=== PATIENT | female | born 1945 | race Caucasian/White ===

== ENCOUNTER 2017-04-14 08:52 | Inpatient (IN) | payer OTHER ==
[2017-04-01 13:22] LABS: BASO % 0.3 %; BASO ABS # 0.03 K/uL (0-0.2); COMPLETE YES; EOS % 2.1 %; HEMATOCRIT 36.8 % (37-47); IG% 0.3 %; LYMPH % 20.6 %; LYMPH ABS # 1.85 K/uL (1.2-3.4); MEAN CELL VOLUME 91.5 fL (80-100); MEAN CORPUSCULAR HEMOGLOBIN 32.6 pg (25-34); MEAN CORPUSCULAR HGB CONC 35.6 g/dl (32-36); MONO % 5.7 %; PLATELET COUNT 180 K/uL (130-400); RED BLOOD COUNT 4.02 M/uL (4.2-5.4); WHITE BLOOD COUNT 8.98 K/uL (4.8-10.8)
[2017-04-01 13:31] LABS: INR 1.1 (0.9-1.1); PARTIAL THROMBOPLASTIN RATIO 1.2; URINE APPEARANCE CLEAR (CLEAR); URINE BILIRUBIN NEG (NEG); URINE COLOR YELLOW; URINE NITRITE NEG (NEG); URINE PH 5.5 (4.5-7.5); UROBILINOGEN NEG (NEG)
[2017-04-01 13:33] LABS: MANUAL MICROSCOPIC REQUIRED? NO; REVIEW REQ? NO
[2017-04-01 13:54] LABS: ESTIMATED AVERAGE GLUCOSE 97 mg/dl; HA1C FLAG Normal (Normal)
--- NOTE | 2017-04-01 13:54 | PAT Medication Instructions ---
Service Date Apr 01, 2017. Current Home Medication List Alprazolam (Alprazolam), 0.5 MG PO QAM Apixaban (Eliquis), 5 MG PO BID Calcium Carbonate (Tums), 1 TAB PO BID Diltiazem Hcl Ext Rel (Tiazac), 120 MG PO HS Donepezil HCl (Aricept), 10 MG PO QAM Indapamide (Lozol), 1.25 MG PO QAM Levothyroxine Sodium (Levothyroxine Sodium), 1 TAB PO QAM Magnesium Oxide (Mag-Ox), 400 MG PO QAM Memantine (Namenda), 10 MG PO BID Quetiapine Fumarate (Seroquel), 25 MG PO HS Sertraline (Zoloft), 100 MG PO QAM Simvastatin (Zocor), 20 MG PO HS Valsartan (Diovan), 160 MG PO BID [Tylenol], 1 TAB PO PRN Medication Instructions For Your Scheduled Surgery - Hold the following medications per your cuffing machine operator's instructions: Apixaban (Eliquis), 5 MG PO BID - Hold the following medications 24 hours prior to surgery: Valsartan (Diovan), 160 MG PO BID - Hold the following medications the morning of surgery: Magnesium Oxide (Mag-Ox), 400 MG PO QAM Calcium Carbonate (Tums), 1 TAB PO BID Indapamide (Lozol), 1.25 MG PO QAM - Take the following medications the morning of surgery with a sip of water: [Tylenol], 1 TAB PO PRN (if needed) Donepezil HCl (Aricept), 10 MG PO QAM Levothyroxine Sodium (Levothyroxine Sodium), 1 TAB PO QAM Sertraline (Zoloft), 100 MG PO QAM Alprazolam (Alprazolam), 0.5 MG PO QAM Memantine (Namenda), 10 MG PO BID - Take the following medications as scheduled the night before surgery: [Tylenol], 1 TAB PO PRN (if needed) Diltiazem Hcl Ext Rel (Tiazac), 120 MG PO HS Simvastatin (Zocor), 20 MG PO HS Quetiapine Fumarate (Seroquel), 25 MG PO HS Memantine (Namenda), 10 MG PO BID If you have any questions please call us at [phone] or [phone] or [phone]
--- NOTE | 2017-04-01 14:50 | DIAGNOSTIC IMAGING REPORT ---
CHEST PREADMISSION(PA/LAT) CLINICAL HISTORY: Preoperative chest COMPARISON STUDY: No previous studies for comparison. FINDINGS: The heart is normal in size. There is no focal pulmonary consolidation. There is no failure. There are no pleural effusions. There is a left subclavian dual-chamber central venous pacemaker.[ IMPRESSION: No active disease in the chest. Electronically signed by: Loy Hyatt M.D. 04/01/2017 2:49 PM Dictated Date/Time: 04/01/2017 2:48 PM
[2017-04-01 14:56] LABS: BUN/CREATININE RATIO 13.4 (10-20); CALCIUM 9.8 mg/dl (8.5-10.1); CREATININE 0.75 mg/dl (0.60-1.20); POTASSIUM 3.6 mmol/L (3.5-5.1)
--- NOTE | 2017-04-01 17:26 | HISTORY & PHYSICAL EXAMINATION ---
DATE OF ADMISSION: 04/14/2017 CHIEF COMPLAINT: Right hip pain. HISTORY OF PRESENT ILLNESS: Ms. Arnold is a 72-year-old female with multiple year history of right hip pain. The patient rates her pain an 8/10. She has pain with her daily activities. She has limited standing and walking tolerance. Pain is worse with weightbearing. The patient had an intraarticular injection 2 weeks ago, which gave her no relief. She ambulates with a walker and takes Tylenol at home. She has failed conservative treatment and is scheduled for a right hip replacement. PAST MEDICAL HISTORY: AFib, hypertension, hypercholesterolemia. She denies heart disease, diabetes, or DVT. PAST SURGICAL HISTORY: Left total hip arthroplasty and hysterectomy x2. SOCIAL HISTORY: She denies alcohol or tobacco use. She lives in a 2-story home. She is and retired. FAMILY HISTORY: Negative for DVT. MEDICATIONS: Quetiapine 25 mg twice daily, diltiazem ER 120 mg daily, Donepezil 10 mg daily, Klor-Con 10 mEq 2 tablets b.i.d., levothyroxine 150 mcg daily, mag oxide 400 mg daily, sertraline 100 mg daily, simvastatin 20 mg daily, valsartan 160 mg daily, memantine 10 mg b.i.d., Eliquis 5 mg b.i.d., indapamide 1.25 mg daily, Alprazolam 1 tablet 3 times daily. ALLERGIES: None. REVIEW OF SYSTEMS: See HPI. Ten other systems reviewed, all negative. PHYSICAL EXAMINATION: VITAL SIGNS: Height 5 feet 1 inch, weight 156 pounds, BMI 29. GENERAL: This is a well-developed, well-nourished female, who is alert and oriented x3. Mood and affect are appropriate. HEENT: Normocephalic, atraumatic. Mucous membranes are moist and intact. NECK: Supple without lymphadenopathy. HEART: Regular rate and rhythm without murmurs, rubs, or gallops. LUNGS: Clear to auscultation without wheezes or rhonchi. ABDOMEN: Soft and nontender. Bowel sounds are equal and active. EXTREMITIES: No ecchymosis, redness, or warmth. Thigh and calf are soft and nontender. Log roll of the hip reproduces pain in the groin. Range of motion is decreased. She is neurovascularly intact with +5/5 strength. X-RAY EXAMINATION: AP and lateral views show joint space narrowing and osteophyte formation. IMPRESSION: Degenerative joint disease, right hip. PLAN: The patient will be admitted for a right total hip arthroplasty. The patient is to going to stop her Eliquis 1 week before surgery. She will resume this postoperatively. The patient's family is requesting a short inpatient rehab stay postoperatively, perhaps [facility]? The patient's PCP is Dr. Gonzalez in [place].
[2017-04-14] VITALS (7 sets, daily range): BP systolic 104–147; BP diastolic 66–77; PULSE 64–80; TEMP 36.2–36.5; O2SAT 95–98; Ht 152.4 cm; Wt 71.5 kg
[~2017-04-14] VITALS: Ht 152.4 cm; Wt 71.5 kg
--- NOTE | 2017-04-14 07:21 | History & Physical Bridge Note ---
H&P Re-Evaluation Bridge Note: I have examined the patient, reviewed the History & Physical and in the interval since the performance of the History & Physical I have noted the following changes of clinical significance: No changes noted
[~2017-04-14 08:52] MED LIST: ACET325T96 PO; ACETAMINOPHEN 500 MG TAB PO SCH; APIX1TAB3 PO; ATROPINE SULFATE 0.1 MG/ML 5ML SYR IV PRN; BUPIVACAINE 0.5 % 5 MG/1 ML PF 10ML VIAL ONE; CALC500C3 PO; CEFAZOLIN 2000MG IV PUSH 10 ML IV SCH; CeleBREX 200 MG CAP PO SCH; DEXAMETHASONE 4 MG TAB PO SCH; DILT120C68 PO; DONE5TAB9 PO; DVN/160 PO; EpHEDrine SULFATE INJ 50 MG/ML AMP IV PRN; FAMOTIDINE 20 MG TAB PO SCH; FENTANYL CITRATE INJ 50 MCG/1 ML 2 ML VIAL IV PRN; GABAPENTIN 300 MG CAP PO SCH; HYDROmorphone INJ 1 MG/ML SYR IV PRN; INDA1TAB3 PO; LABETALOL HCL IV 5 MG/ML 20ML IV PRN; LACTATED RINGER'S 1000ML 1,000 ML IV SCH; LACTATED RINGER'S 1000ML 500 ML IV SCH; LACTATED RINGER'S 1000ML IV SCH; LEVO150T9 PO; MAGN400T6 PO; METOCLOPRAMIDE HCL 10 MG TAB PO SCH; NMN10 PO; ONDANSETRON INJ 2 MG/ML 2 ML VIAL IV PRN; PHENYLEPHRINE 100MCG/ML 5ML SYR IV PRN; QUET1TAB30 PO; ROPIVACAINE 5MG/ML 30 ML 150 MG, BUPIVACAINE 0.5% MPF INJ 30 ML, EpINEphrine HCL INJ 0.... INFIL SCH; SERT-234 PO; SIMV20TA2 PO; XNX5 PO
[2017-04-14] MEDS ORDERED: LIDOCAINE HCL 2% 2 ML VIAL (20MG/ML) ONE (09:48)
[2017-04-14] MEDS ORDERED: FENTANYL CITRATE INJ 50 MCG/1 ML 2 ML VIAL ONE (09:48)
[2017-04-14] MEDS ORDERED: MIDAZOLAM HCL 1 MG/ML 2ML VIAL ONE (09:48)
[2017-04-14] MEDS ORDERED: ONDANSETRON INJ 2 MG/ML 2 ML VIAL ONE ×2 (09:48→11:21)
[2017-04-14] MEDS ORDERED: PROPOFOL IV EMULSION 10 MG/ML 20 ML VIAL IV ONE (09:48)
[2017-04-14] MEDS ORDERED: POVIDONE-IODINE OP SOLN 30 ML BTL ONE (10:34)
[2017-04-14] MEDS ORDERED: ORTHO JOINT ANESTHETIC ONE (10:34)
[2017-04-14] MEDS ORDERED: BACITRACIN 50000 UNIT VIAL ONE (10:34)
[2017-04-14] MEDS ORDERED: LARYING-O-JET KIT (LTA) ONE ×2 (11:17)
[2017-04-14] MEDS ORDERED: NEOSTIGMINE METHYLSULFATE 5 MG/5 ML SYR ONE (11:18)
[2017-04-14] MEDS ORDERED: ROCURONIUM BROMIDE 10 MG/ML 5 ML VIAL IV ONE (11:18)
[2017-04-14] MEDS ORDERED: GLYCOPYRROLATE INJ 0.2 MG/ML VIAL ONE (11:18)
[2017-04-14] MEDS ORDERED: DEXAMETHASONE SOD INJ 4 MG/ML VIAL ONE (11:21)
[2017-04-14] MEDS ORDERED: HYDROmorphone INJ 2 MG/ML SYR/VIAL ONE (11:37)
--- NOTE | 2017-04-14 12:07 | [facility] Post Operative Brief Note ---
Immediate Operative Summary Operative Date Apr 14, 2017. Pre-Operative Diagnosis Right hip degenerative joint disease Post-Operative Diagnosis Right hip degenerative joint disease Procedure(s) Performed Right hip total arthroplasty Surgeon Dr. Clyde Garcia Machine Welder Surgeon(s) August Duffy PAC Estimated Blood Loss 100ml Findings oa Specimens A: Right femoral head Complication(s) None Disposition Recovery Room / PACU
--- NOTE | 2017-04-14 12:22 | OPERATIVE REPORT ---
DATE OF OPERATION: 04/14/2017 PREOPERATIVE DIAGNOSIS: Osteoarthritis right hip. POSTOPERATIVE DIAGNOSIS: Osteoarthritis right hip. PROCEDURE: Right connective total hip arthroplasty. SURGEON: Dr. Garcia. CONDUCTOR FREIGHT: August Duffy PA-C. ANESTHESIA: General. COMPLICATIONS: None. OPERATION AND FINDINGS: PROCEDURE: Following induction of adequate general anesthesia, the patient was placed in left lateral decubitus position and right Lena-Langenbeck incision was made. Subcutaneous tissue was sharply dissected. Electrocautery used for hemostasis. The fascia was incised throughout the length of the wound and a garvey scissor placed beneath the short external rotators. The pyriformis was tagged with #1 Vicryl. The short external rotators were divided from the posterior aspect of the femur using electrocautery. These were swept posteriorly. A T-capsulotomy incision was made and the hip was dislocated using a combination of flexion, adduction, and internal rotation. Exposure of the femoral neck with old-style Hohmann and a blunt Hohmann was carried out and a femoral rasp was utilized as a guide for making the appropriate level femoral neck cut. This bone fragment was removed and reserved on the back table. Next, attention was turned to the acetabulum where bone hook was used to retract the femur while the offset retractors were placed anterior and posteriorly. A double-angled Hohmann was placed in superior and anterior position exposing the acetabulum nicely. Acetabular labrum as well as posterior capsule elements were removed using a long knife and a long pickup. Fovea centralis was cleared of all soft tissue. Sequential reamings were carried up to a size 50 and decision was made to proceed with impaction of a size 50 trabecular metal cup. This was impacted and held using a single 35 mm bone screw. The acetabular liner was placed with 15 of elevated posterior wall in the superior and posterior position. Next, attention was turned to the femoral portion of the case where a Bovie and pickup was used to further clear short external rotators from their insertion on the femur. Box osteotome was used to gain access to the femoral canal and the T-handled rasp and a rattail rasp were used to further open and lateral the canal. Sequentially raspings were carried up to a size 3 which gave good fit and fill of the proximal femur. A trial reduction was carried out and a 132 degree femoral neck component was chosen as the size to be used. A -2.5 ceramic femoral head was impacted into position, +0 head was utilized. The trial reduction was stable in all degrees of rotation with no [id number] impingement. The hip was dislocated. The trial components were removed and the final femoral stem, neck, and femoral head combination were assembled on the back table and impacted into position. Hip was relocated. Range of motion checked once again successful and the wound was irrigated. The pyriformis repaired to the greater trochanter using #1 Vicryl [id number] suture. A Hemovac drain was placed and the fascia was closed using #1 Vicryl, subcutaneous tissue was closed using 0 Dexon, and skin was closed with kyung. Sterile dressing of Adaptic, 4 x 4's, ABDs, and foam tape was applied. The patient tolerated the procedure well. Recovery room stable. Due to the complex nature of the procedure, the entire surgery was performed with the operational assistance of August Duffy PA-C. The assistant shift supervisor, under direct supervision, was involved in the actual performance of all aspects of the surgical procedure including hemostasis, tissue retraction and incision, instrument management, patient positioning, and wound closure. I attest to the content of the Intraoperative Record and any orders documented therein. Any exception s are noted below.
[2017-04-14] MEDS ORDERED: ALUMINUM/MAGNESIUM/SIMETH (MAALOX MAX) 30 ML UDC PO PRN (12:45)
[2017-04-14] MEDS ORDERED: OXYCODONE HCL IR 5 MG TAB (IMMEDIATE RELEASE) PO PRN (12:45)
[2017-04-14] MEDS ORDERED: ONDANSETRON INJ 2 MG/ML 2 ML VIAL IV PRN (12:45)
[2017-04-14] MEDS ORDERED: MoRPHine SULFATE 2 MG/ML CARP IV PRN (12:45)
[2017-04-14] MEDS ORDERED: MAGNESIUM HYDROXIDE SUSP 30 ML UDC PO PRN (12:45)
[2017-04-14] MEDS ORDERED: ZOLPIDEM TARTRATE 5 MG TAB PO PRN (12:45)
[2017-04-14] MEDS ORDERED: METOCLOPRAMIDE HCL INJ 5 MG/ML 2 ML VIAL IV PRN (12:45)
[2017-04-14] MEDS ORDERED: LABETALOL HCL IV 5 MG/ML 20ML IV ONE (12:51)
--- NOTE | 2017-04-14 13:24 | DIAGNOSTIC IMAGING REPORT ---
R PELVIS/UNILATERAL HIP 1 VIEW HISTORY: 72 years-old Female IN PACU - A/P PELVIS and LATERAL HIP INCLUDING ALL OF IMPLANT status post right hip total arthroplasty. Degenerative joint disease. COMPARISON: None available TECHNIQUE: AP view of the pelvis with frog-leg view of the right hip FINDINGS: Bones are mildly demineralized. No acute pelvic ring fracture identified. Bilateral hip arthroplasties are noted with satisfactory alignment. Surgical drain seen overlying the right hip. Expected postsurgical swelling and deep tissue air noted about the right hip. No retained foreign body identified. Vascular calcifications are noted. IMPRESSION: Status post right hip total joint arthroplasty without evidence of complication. The above report was generated using voice recognition software. It may contain grammatical, syntax or spelling errors. Electronically signed by: Cory Marshall M.D. 04/14/2017 1:22 PM Dictated Date/Time: 04/14/2017 1:20 PM
--- NOTE | 2017-04-14 14:57 | Anesthesiology Progress Note ---
Anesthesia Post Op Note Date & Time Apr 14, 2017 at 14:57 Vital Signs Pain Intensity: 0 Vital Signs Past 12 Hours Date Time Temp Pulse Resp B/P (MAP) Pulse Ox O2 Delivery O2 Flow Rate FiO2 04/14/17 13:42 76 26 95 04/14/17 13:42 63 26 04/14/17 13:41 116/53 04/14/17 13:37 64 15 04/14/17 13:37 64 15 95 04/14/17 13:36 117/59 04/14/17 13:32 67 13 04/14/17 13:32 67 13 94 04/14/17 13:31 119/55 04/14/17 13:27 67 17 04/14/17 13:27 67 17 97 04/14/17 13:26 130/67 04/14/17 13:22 65 14 04/14/17 13:22 65 14 97 04/14/17 13:21 107/57 04/14/17 13:21 36.6 67 19 130/67 97 Oxymask 3 04/14/17 13:17 68 19 04/14/17 13:17 66 19 97 04/14/17 13:16 116/56 04/14/17 13:12 68 16 97 04/14/17 13:12 68 16 04/14/17 13:11 120/59 04/14/17 13:07 71 8 04/14/17 13:07 66 8 97 04/14/17 13:06 68 13 04/14/17 13:06 68 13 120/60 97 04/14/17 13:01 71 13 04/14/17 13:01 71 13 134/62 98 04/14/17 12:56 69 12 116/60 96 04/14/17 12:56 69 12 04/14/17 12:51 67 11 115/61 95 04/14/17 12:51 68 11 04/14/17 12:50 68 14 115/61 96 Oxymask 10 04/14/17 12:46 73 15 119/70 96 04/14/17 12:46 73 15 04/14/17 12:43 36.6 108 16 201/94 95 Oxymask 10 04/14/17 12:43 201/94 04/14/17 12:41 107 93 04/14/17 12:41 107 04/14/17 09:41 36.5 80 20 147/77 97 Room Air Notes Mental Status: alert / awake / arousable, participated in evaluation Pt Amnestic to Procedure: Yes Nausea / Vomiting: adequately controlled Pain: adequately controlled Airway Patency, RR, SpO2: stable & adequate BP & HR: stable & adequate Hydration State: stable & adequate Anesthetic Complications: no major complications apparent
[2017-04-14] MEDS ORDERED: MoRPHine SULFATE 4 MG/ML 1 ML CARP\\VIAL IV PRN (16:15)
--- NOTE | 2017-04-14 16:54 | Medical Consult ---
History General Date of Service: Apr 14, 2017. Stated Complaint: Right Hip Osteoarthritis HPI The patient is a 72 year old female who presents to [facility] with complaints of Right Hip Osteoarthritis. The patient's primary care provider is Memo Gonzalez M.D.. Patient is seen in her room Dr. Garcia was dressing her wound was bleeding a bit. She is still slightly sedate from general anesthesia her is at the bedside as well as the rest of her family she has no focal complaints or problems other than feeling weak and groggy she does have a history of atrial fibrillation usually on chronic anticoagulation with Eliquis her A. fib has been controlled with diltiazem Review of Systems Patient's sedation prevents an accurate review of systems currently she can tell me she does not feel short of breath or chest pain she does not feel palpitations she feels no nausea vomiting she has some pain in her operative site Social History Hx Tobacco Use In Past Year?: No Smoking Status: Never Smoker Allergies Coded Allergies: No Known Allergies (Unverified , 04/14/17) Current Medications Reported Home Medications Medications Dose Route/Sig Max Daily Dose Days Date Category Tylenol (Acetaminophen) 325 Mg Tab 325 Mg PO PRN 04/01/17 Reported Tums (Calcium Carbonate) 500 Mg Chew 1 Tab PO BID 04/01/17 Reported Alprazolam 0.5 Mg Tab 0.5 Mg PO QAM 04/01/17 Reported Lozol (Indapamide) 1.25 Mg Tab 1.25 Mg PO QAM 04/01/17 Reported Eliquis (Apixaban) 5 Mg Tab 5 Mg PO BID 04/01/17 Reported Namenda (Memantine) 10 Mg Tab 10 Mg PO BID 04/01/17 Reported Diovan (Valsartan) 160 Mg Tab 160 Mg PO BID 04/01/17 Reported Zocor (Simvastatin) 20 Mg Tab 20 Mg PO HS 04/01/17 Reported Zoloft (Sertraline HCl) 100 Mg Tab 100 Mg PO QAM 04/01/17 Reported Mag-Ox (Magnesium Oxide) 400 Mg Tab 400 Mg PO QAM 04/01/17 Reported Levothyroxine Sodium 150 Mcg Tab 1 Tab PO QAM 90 04/01/17 Reported Aricept (Donepezil HCl) 5 Mg Tab 10 Mg PO QAM 90 04/01/17 Reported Tiazac (Diltiazem HCl) 120 Mg Capcr 120 Mg PO HS 04/01/17 Reported Seroquel (Quetiapine Fumarate) 25 Mg Tab 25 Mg PO HS 04/01/17 Reported Physical Physical Exam Vital Signs: Date Time Temp Pulse Resp B/P (MAP) Pulse Ox O2 Delivery O2 Flow Rate FiO2 04/14/17 16:33 36.2 64 10 111/70 (84) 96 Nasal Cannula 2.0 04/14/17 15:59 36.3 65 12 116/67 (83) 96 Nasal Cannula 2.0 04/14/17 15:30 Nasal Cannula 04/14/17 15:30 96 Nasal Cannula 2.0 04/14/17 15:24 70 10 98 04/14/17 15:24 70 10 04/14/17 15:21 135/52 04/14/17 15:19 70 15 96 04/14/17 15:19 70 15 04/14/17 15:16 132/72 04/14/17 15:14 73 27 98 04/14/17 15:14 74 27 04/14/17 15:11 149/59 04/14/17 15:09 75 13 04/14/17 15:09 75 13 97 04/14/17 15:06 137/53 04/14/17 15:04 71 13 95 04/14/17 15:04 71 13 04/14/17 15:03 78 24 04/14/17 15:03 79 24 97 04/14/17 15:01 140/68 04/14/17 14:58 76 26 04/14/17 14:58 76 26 98 04/14/17 14:56 126/63 04/14/17 14:53 69 17 04/14/17 14:53 69 17 96 04/14/17 14:51 122/68 04/14/17 14:48 69 10 94 04/14/17 14:48 70 10 04/14/17 14:46 133/62 04/14/17 14:43 70 17 04/14/17 14:43 70 17 95 04/14/17 14:41 126/68 04/14/17 14:38 71 18 04/14/17 14:38 71 18 96 04/14/17 14:36 125/64 04/14/17 14:33 67 9 95 04/14/17 14:33 67 9 11/16/17 14:31 117/57 17 14:28 66 10 92 17 14:28 66 10 17 14:26 118/56 17 14:23 66 15 93 17 14:23 66 15 04/14/17 14:21 118/65 17 14:18 66 6 95 17 14:18 66 6 17 14:16 121/58 17 14:13 67 11 94 17 14:13 67 11 04/14/17 14:11 127/64 17 14:08 70 22 17 14:08 69 22 95 17 14:06 120/63 17 14:03 65 8 04/14/17 14:03 64 8 92 04/14/17 14:01 115/56 04/14/17 13:58 64 9 94 17 13:58 64 9 17 13:56 116/53 17 13:53 64 9 04/14/17 13:53 64 9 95 17 13:51 121/58 17 13:48 65 12 94 17 13:48 64 12 17 13:46 115/57 17 13:43 64 8 94 04/14/17 13:43 64 8 17 13:42 76 26 95 17 13:42 63 26 17 13:41 116/53 17 13:37 64 15 17 13:37 64 15 95 17 13:36 117/59 17 13:32 67 13 17 13:32 67 13 94 17 13:31 119/55 17 13:27 67 17 04/14/17 13:27 67 17 97 16/17 13:26 130/67 17 13:22 65 14 04/14/17 13:22 65 14 97 17 13:21 107/57 17 13:21 36.6 67 19 130/67 97 Oxymask 3 04/14/17 13:17 68 19 04/14/17 13:17 66 19 97 04/14/17 13:16 116/56 04/14/17 13:12 68 16 97 04/14/17 13:12 68 16 04/14/17 13:11 120/59 04/14/17 13:07 71 8 04/14/17 13:07 66 8 97 04/14/17 13:06 68 13 04/14/17 13:06 68 13 120/60 97 04/14/17 13:01 71 13 04/14/17 13:01 71 13 134/62 98 04/14/17 12:56 69 12 116/60 96 04/14/17 12:56 69 12 04/14/17 12:51 67 11 115/61 95 04/14/17 12:51 68 11 04/14/17 12:50 68 14 115/61 96 Oxymask 10 04/14/17 12:46 73 15 119/70 96 04/14/17 12:46 73 15 04/14/17 12:43 36.6 108 16 201/94 95 Oxymask 10 04/14/17 12:43 201/94 04/14/17 12:41 107 93 04/14/17 12:41 107 04/14/17 09:41 36.5 80 20 147/77 97 Room Air She is slightly pale appearing General Appearance: uncomfortable, mild distress Eyes: PERRLA, EOMI, SCLERAE NORMAL Respiratory: BREATH SOUNDS NORMAL, CLEAR TO AUSCULTATION, CLEAR TO PERCUSSION Cardiovasular: REGULAR RATE/RHYTHM (does not sound to be in A. fib at the bedside), NORMAL S1S2, systolic murmur (very slight systolic murmur) Abdomen: NON TENDER, NORMAL BOWEL SOUNDS, NO REBOUND, NO MASSES Upper Extremities: NO EDEMA, NORMAL ROM Lower Extremities: NO EDEMA, other (surgical dressing and wound VAC on the right hip) Pulses: dorsalis pedis (R) (1+), dorsalis pedis (L) (1+) Psychiatric: other (she is slightly sedate) Impression Assessment and Plan 72-year-old female history of atrial fibrillation undergoing right total hip replacement For history of atrial fibrillation she'll be continued on her diltiazem and Eliquis will be maintained is also serve as DVT prevention For history of hypertension with her blood loss to reduce her Diovan dose by 50 % holding this evening stenosis restarted tomorrow at 80 twice a day from her normal 160 twice a day She does have baseline memory impairment she will continue her Namenda and Aricept Due to her depression we'll continue her Zoloft at 100 but hold her at bedtime Seroquel on 04/14 resuming and 04/15 Due to the blood on her wound postoperatively we will recheck a hemoglobin at 2200 hrs. on 04/14 and if it does drop significantly from a preoperative hemoglobin of 13 she'll receive a transfusion if symptomatic.
[2017-04-14] MEDS: FERROUS GLUCONATE 324 MG TAB PO SCH (17:45)
[2017-04-14] MEDS: CEFAZOLIN IV 1,000 MG in SYRINGE 0 ML IV SCH (18:13)
[2017-04-14] MEDS: KETOROLAC TROMETHAMINE 15 MG/ML VIAL IV. SCH ×2 (18:15→23:07)
[2017-04-14] MEDS ORDERED: VALSARTAN 80 MG TAB PO SCH ×2 (21:00)
[2017-04-14] MEDS ORDERED: QUETIAPINE FUMARATE 25 MG TAB PO SCH ×2 (21:00)
[2017-04-14] MEDS: DOCUSATE SODIUM 100 MG CAP PO SCH (22:23)
[2017-04-14] MEDS: MEMANTINE 10 MG TAB PO SCH (22:23)
[2017-04-14] MEDS: ACETAMINOPHEN 500 MG TAB PO SCH (22:24)
[2017-04-14] MEDS: SIMVASTATIN 20 MG TAB PO SCH (22:24)
[2017-04-14] MEDS: DILTIAZEM HCL 120 MG EXT REL CAP PO SCH (22:24)
[2017-04-14 22:32] LABS: HEMATOCRIT 32.3 % (37-47)
[2017-04-14] MEDS ORDERED: SODIUM CHLORIDE 0.9% 500ML 500 ML IV STA (22:50)
[2017-04-14] MEDS: D5W AND 1/2NSS + 20MEQ KCL 1,000 ML IV SCH (23:41)
[2017-04-15] MEDS: CEFAZOLIN IV 1,000 MG in SYRINGE 0 ML IV SCH (01:45)
[2017-04-15 03:40] VITALS: BP 115/65; PULSE 68; TEMP 36.4; O2SAT 98
[2017-04-15] MEDS: LEVOTHYROXINE 150 MCG TAB PO SCH (05:59)
[2017-04-15] MEDS: KETOROLAC TROMETHAMINE 15 MG/ML VIAL IV. SCH ×2 (05:59→12:40)
[2017-04-15] MEDS: ACETAMINOPHEN 500 MG TAB PO SCH ×4 (05:59→22:00)
[2017-04-15 06:35] LABS: BUN/CREATININE RATIO 21.7 (10-20); CALCIUM 8.2 mg/dl (8.5-10.1); CREATININE 1.33 mg/dl (0.60-1.20); POTASSIUM 4.1 mmol/L (3.5-5.1)
[2017-04-15 06:40] LABS: BASO % 0.1 %; BASO ABS # 0.02 K/uL (0-0.2); COMPLETE YES; HEMATOCRIT 24.7 % (37-47); IG% 0.3 %; LYMPH % 8.4 %; LYMPH ABS # 1.21 K/uL (1.2-3.4); MEAN CELL VOLUME 94.3 fL (80-100); MEAN CORPUSCULAR HEMOGLOBIN 33.6 pg (25-34); MEAN CORPUSCULAR HGB CONC 35.6 g/dl (32-36); MEAN PLATELET VOLUME 10.2 fL (7.4-10.4); MONO % 8.5 %; NEUT % 82.7 %; PLATELET COUNT 172 K/uL (130-400); RED BLOOD COUNT 2.62 M/uL (4.2-5.4); WHITE BLOOD COUNT 14.32 K/uL (4.8-10.8)
[2017-04-15] MEDS ORDERED: DEXAMETHASONE 4 MG TAB PO SCH (07:30)
--- NOTE | 2017-04-15 07:40 | Orthopedic Progress Note ---
Orthopedic Progress Note Date of Service Apr 15, 2017. Subjective Post OP Day: 1 Reports: feeling well Objective N/V intact, dressing C/D/I (Hemovac d/c'd), toes mobile Date Time Temp Pulse Resp B/P (MAP) Pulse Ox O2 Delivery O2 Flow Rate FiO2 04/15/17 03:40 36.4 68 16 115/65 (82) 98 Room Air 04/14/17 23:06 36.3 64 16 104/66 (79) 97 Room Air 04/14/17 23:00 Room Air 04/14/17 22:25 95 Room Air 04/14/17 19:03 36.3 66 14 117/72 (87) 97 Nasal Cannula 2.0 04/14/17 17:41 36.2 64 12 111/72 (85) 98 Nasal Cannula 2.0 04/14/17 16:33 36.2 64 10 111/70 (84) 96 Nasal Cannula 2.0 04/14/17 15:59 36.3 65 12 116/67 (83) 96 Nasal Cannula 2.0 04/14/17 15:30 Nasal Cannula 04/14/17 15:30 96 Nasal Cannula 2.0 04/14/17 15:24 70 10 98 04/14/17 15:24 70 10 04/14/17 15:21 135/52 04/14/17 15:19 70 15 96 04/14/17 15:19 70 15 04/14/17 15:16 132/72 04/14/17 15:14 73 27 98 04/14/17 15:14 74 27 04/14/17 15:11 149/59 04/14/17 15:09 75 13 04/14/17 15:09 75 13 97 04/14/17 15:06 137/53 04/14/17 15:04 71 13 95 04/14/17 15:04 71 13 04/14/17 15:03 78 24 04/14/17 15:03 79 24 97 04/14/17 15:01 140/68 04/14/17 14:58 76 26 04/14/17 14:58 76 26 98 04/14/17 14:56 126/63 04/14/17 14:53 69 17 04/14/17 14:53 69 17 96 04/14/17 14:51 122/68 11/16/17 14:48 69 10 94 16/17 14:48 70 10 16/17 14:46 133/62 16/17 14:43 70 17 16/17 14:43 70 17 95 16/17 14:41 126/68 16/17 14:38 71 18 16/17 14:38 71 18 96 16/17 14:36 125/64 16/17 14:33 67 9 95 16/17 14:33 67 9 16/17 14:31 117/57 16/17 14:28 66 10 92 16/17 14:28 66 10 16/17 14:26 118/56 16/17 14:23 66 15 93 16/17 14:23 66 15 16/17 14:21 118/65 16/17 14:18 66 6 95 16/17 14:18 66 6 16/17 14:16 121/58 16/17 14:13 67 11 94 16/17 14:13 67 11 16/17 14:11 127/64 16/17 14:08 70 22 16/17 14:08 69 22 95 16/17 14:06 120/63 16/17 14:03 65 8 16/17 14:03 64 8 92 16/17 14:01 115/56 16/17 13:58 64 9 94 16/17 13:58 64 9 16/17 13:56 116/53 16/17 13:53 64 9 16/17 13:53 64 9 95 16/17 13:51 121/58 16/17 13:48 65 12 94 16/17 13:48 64 12 16/17 13:46 115/57 16/17 13:43 64 8 94 16/17 13:43 64 8 16/17 13:42 76 26 95 16/17 13:42 63 26 16/17 13:41 116/53 16/17 13:37 64 15 16/17 13:37 64 15 95 16/17 13:36 117/59 11/16/17 13:32 67 13 04/14/17 13:32 67 13 94 04/14/17 13:31 119/55 04/14/17 13:27 67 17 04/14/17 13:27 67 17 97 04/14/17 13:26 130/67 04/14/17 13:22 65 14 04/14/17 13:22 65 14 97 04/14/17 13:21 107/57 04/14/17 13:21 36.6 67 19 130/67 97 Oxymask 3 04/14/17 13:17 68 19 04/14/17 13:17 66 19 97 04/14/17 13:16 116/56 04/14/17 13:12 68 16 97 04/14/17 13:12 68 16 04/14/17 13:11 120/59 04/14/17 13:07 71 8 04/14/17 13:07 66 8 97 04/14/17 13:06 68 13 04/14/17 13:06 68 13 120/60 97 04/14/17 13:01 71 13 04/14/17 13:01 71 13 134/62 98 04/14/17 12:56 69 12 116/60 96 04/14/17 12:56 69 12 04/14/17 12:51 67 11 115/61 95 04/14/17 12:51 68 11 04/14/17 12:50 68 14 115/61 96 Oxymask 10 04/14/17 12:46 73 15 119/70 96 04/14/17 12:46 73 15 04/14/17 12:43 36.6 108 16 201/94 95 Oxymask 10 04/14/17 12:43 201/94 04/14/17 12:41 107 93 04/14/17 12:41 107 04/14/17 09:41 36.5 80 20 147/77 97 Room Air Laboratory Results 24 Hours: Test 04/14/17 22:12 04/15/17 05:53 Hematocrit 32.3 % 24.7 % Hemoglobin 10.8 g/dL 8.8 g/dL White Blood Count 14.32 K/uL Red Blood Count 2.62 M/uL Mean Corpuscular Volume 94.3 fL Mean Corpuscular Hemoglobin 33.6 pg Mean Corpuscular Hemoglobin Concent 35.6 g/dl Platelet Count 172 K/uL Mean Platelet Volume 10.2 fL Neutrophils (%) (Auto) 82.7 % Lymphocytes (%) (Auto) 8.4 % Monocytes (%) (Auto) 8.5 % Eosinophils (%) (Auto) 0.0 % Basophils (%) (Auto) 0.1 % Neutrophils # (Auto) 11.83 K/uL Lymphocytes # (Auto) 1.21 K/uL Monocytes # (Auto) 1.22 K/uL Eosinophils # (Auto) 0.00 K/uL Basophils # (Auto) 0.02 K/uL Assessment & Plan Assessment: 72 yo female stable POD #1 s/p right CURTIS, acute blood loss anemia Plan: 1. Med management 2. DVT prophylaxis- resume Eliquis later today, SCDs 3. PT/OT 4. D/C planning- home w/ HH
--- NOTE | 2017-04-15 07:43 | Discharge Instructions ---
Discharge Instructions Date of Service Apr 15, 2017. Admission Reason for Admission: Right Hip Osteoarthritis Discharge Discharge Diagnosis / Problem: Right hip arthritis Discharge Goals Goal(s): Decrease discomfort, Improve function Activity Recommendations Activity Limitations: as noted below Weightbearing Status: Right weightbearing (as tolerated) . Instructions / Follow-Up Instructions / Follow-Up ACTIVITY RECOMMENDATIONS: SELF CARE INSTRUCTIONS AFTER TOTAL HIP REPLACEMENT Until the incision and soft tissues around your hip have healed, there is a possibility that the hip prosthesis could dislocate. A. Observe the following precautions to prevent dislocation: 1. Don't bend your hip greater than 90 degrees. 2. Avoid crossing your legs or ankles while standing or lying. 3. Sit with your feet placed 6 inches apart. 4. When sitting, keep your knees below your hips. Sit on a firm surface, avoid deep, soft chairs and couches. Use an elevated toilet seat in the bathroom. 5. Don't bend over at the waist. Use a long handled shoehorn and a sock aid to help you put on your shoes and socks. A oracle business intelligence developer can help you flower picker objects that are too high or too low to reach. 6. Keep car riding to a minimum for at least one month after surgery. B. Your balance may be shaky for a while. Use crutches or a walker until directed by your doctor. C. Use hand rails when walking on stairs. D. Wear low heeled shoes with non-slip soles. E. Be sure that your floors are free of things that could trip you - throw rugs , electrical cords, small objects. Avoid wet and waxed floors, especially with crutches and canes. F. Try to walk several times a day with rest periods between. G. Continue with all the exercises taught to you in the hospital. Again, make walking a part of your daily routine. SPECIAL CARE INSTRUCTIONS: VERY IMPORTANT TO READ AND REVIEW A. You may still be at risk for phlebitis and blood clots. 1. Wear surgical stockings (BETSY hose) for 2 weeks after surgery to improve circulation and reduce swelling. 2. Take Aspirin 81mg twice daily for 4 weeks or as directed by your doctor. This is your blood thinner. 3. High risk patients may be prescribed a stronger blood thinner if necessary. 4. If you are on Coumadin normally, your family doctor/officer captain should monitor your blood work. Expect a phone call the day of or the day after bloodwork is drawn to adjust your dosage. B. You must take antibiotics before having dental work, bladder, bowel and other surgery. Your doctor will provide you with a permanent card to carry describing precautions. C. Call [facility] if you have a fever, redness or swelling around the incision, cloudy drainage from incision, or sudden increase in pain in your hip, not relieved by your regular pain medication. D. Please call the office at if you have any concerns or questions about your operation or recovery. * YOU MAY SHOWER, NO TUB BATHS UNTIL CLEARED BY YOUR DOCTOR. * WEAR BETSY HOSE 20 HOURS PER DAY FOR 2 WEEKS. * YOU SHOULD USE A WALKER OR CRUTCHES FOR 2-4 WEEKS. THIS WILL HELP PREVENT STRAIN ON YOUR HIP MUSCLE AND ALLOW IT TO HEAL PROPERLY. YOU MAY WEAN TO A CANE TOLERATED. * MOST PATIENTS WILL HAVE HOME NURSING FOR THERAPY. IF YOU DECIDE TO DO OUTPATIENT PHYSICAL THERAPY, PLEASE SCHEDULE THIS 3 TIMES PER WEEK. Silverlon- This is a large adhesive bandage that contains silver ions. This helps your incision heal by fighting off bacteria and protecting it from the outside environment. You are permitted to shower with this dressing. This will remain on your incision for 7 days and then should be removed. Some visible blood or drainage through the dressing window is normal. If there is significant drainage or leaking noted before the 7 days notify your doctor's office immediately. Once removed, keep incision clean and dry. If there is any drainage or redness noted, please call your surgeon. When removing Silverlon, leave underlying Zipline closure in place until follow-up with MD. FOLLOW UP VISIT: If appointment is not already scheduled: Please call [facility] to make a follow-up appointment for 2 weeks after your surgery at . Current Hospital Diet Patient's current hospital diet: Regular Diet Discharge Diet Recommended Diet: Regular Diet Procedures Procedures Performed: Right hip total arthroplasty Pending Studies Studies pending at discharge: no Laboratory Results Hemoglobin A1c Test 04/01/17 12:45 Range/Units Estimated Average Glucose 97 mg/dl Hemoglobin A1c 5.0 4.5-5.6 % Medical Emergencies . Who to Call and When: Medical Emergencies: If at any time you feel your situation is an emergency, please call 911 immediately. . Non-Emergent Contact Non-Emergency issues call your: Surgeon Call Non-Emergent contact if: temperature is above 101.5, your pain is not controlled, wound has increased drainage, wound has increased redness . "Provider Documentation" section prepared by August Duffy PA-C. . VTE Core Measure Inpt VTE Proph given/why not?: Other Anticoagulation (Eliquis), T.E.DStanley Stockings, SCD's [place] Drug Monitoring Program Search Results: patient reviewed within database, no issues identified
[2017-04-15] MEDS: FERROUS GLUCONATE 324 MG TAB PO SCH ×3 (08:15→17:56)
[2017-04-15 08:18] VITALS: BP 130/62; PULSE 81; TEMP 36.4; O2SAT 98
[2017-04-15 08:41] VITALS: O2SAT 98
[2017-04-15] MEDS: D5W AND 1/2NSS + 20MEQ KCL 1,000 ML IV SCH ×2 (09:08→18:38)
[2017-04-15] MEDS: MULTIVITAMIN TAB PO SCH (09:08)
[2017-04-15] MEDS: DONEPEZIL HCL 5 MG TAB PO SCH (09:09)
[2017-04-15] MEDS: DOCUSATE SODIUM 100 MG CAP PO SCH ×3 (09:09→21:00)
[2017-04-15] MEDS: MAGNESIUM OXIDE 400 MG TAB PO SCH (09:09)
[2017-04-15] MEDS: SERTRALINE HCL 100 MG TAB PO SCH (09:09)
[2017-04-15] MEDS: VALSARTAN 80 MG TAB PO SCH ×3 (09:10→21:00)
[2017-04-15] MEDS: PANTOprazole SOD 40 MG TAB PO SCH (09:10)
[2017-04-15] MEDS: MEMANTINE 10 MG TAB PO SCH ×3 (09:10→21:00)
[2017-04-15] MEDS: INDAPAMIDE 1.25 MG TAB PO SCH (09:11)
[2017-04-15 11:34] VITALS: BP 132/78; PULSE 74; TEMP 36.9; O2SAT 98
[2017-04-15] MEDS ORDERED: ALPRAZOLAM 0.5 MG TAB PO ONE (12:43)
--- NOTE | 2017-04-15 12:55 | Progress Note ---
Subjective Date of Service: Apr 15, 2017. Subjective Pt evaluation today including: conversation w/ patient, conversation w/ family Pt is doing well post-op. No further bleeding concerns. She does not have pain. States she ate without issue. Denies chest pain, SOB. Pt denies fever, abd pain, n/v/c/d, LE pain or swelling. Nursing called after I had rounded and states that family informed her that pt usually takes xanax 0.5mg AM and is getting a bit anxious and unruly without it. Requesting home medication as written. Review of Systems All Other Systems: Reviewed and Negative Objective Vital Signs Date Time Temp Pulse Resp B/P (MAP) Pulse Ox O2 Delivery O2 Flow Rate FiO2 04/15/17 11:34 36.9 74 18 132/78 (96) 98 Room Air 04/15/17 08:41 98 Room Air 04/15/17 08:18 36.4 81 16 130/62 (84) 98 Room Air 04/15/17 07:45 Room Air 04/15/17 03:40 36.4 68 16 115/65 (82) 98 Room Air 04/14/17 23:06 36.3 64 16 104/66 (79) 97 Room Air 04/14/17 23:00 Room Air 04/14/17 22:25 95 Room Air 04/14/17 19:03 36.3 66 14 117/72 (87) 97 Nasal Cannula 2.0 04/14/17 17:41 36.2 64 12 111/72 (85) 98 Nasal Cannula 2.0 04/14/17 16:33 36.2 64 10 111/70 (84) 96 Nasal Cannula 2.0 04/14/17 15:59 36.3 65 12 116/67 (83) 96 Nasal Cannula 2.0 04/14/17 15:30 Nasal Cannula 04/14/17 15:30 96 Nasal Cannula 2.0 04/14/17 15:24 70 10 98 04/14/17 15:24 70 10 04/14/17 15:21 135/52 04/14/17 15:19 70 15 96 04/14/17 15:19 70 15 04/14/17 15:16 132/72 04/14/17 15:14 73 27 98 04/14/17 15:14 74 27 04/14/17 15:11 149/59 11/16/17 15:09 75 13 16/17 15:09 75 13 97 16/17 15:06 137/53 16/17 15:04 71 13 95 16/17 15:04 71 13 16/17 15:03 78 24 16/17 15:03 79 24 97 16/17 15:01 140/68 16/17 14:58 76 26 16/17 14:58 76 26 98 16/17 14:56 126/63 16/17 14:53 69 17 16/17 14:53 69 17 96 16/17 14:51 122/68 16/17 14:48 69 10 94 16/17 14:48 70 10 16/17 14:46 133/62 16/17 14:43 70 17 16/17 14:43 70 17 95 16/17 14:41 126/68 16/17 14:38 71 18 1617 14:38 71 18 96 16/17 14:36 125/64 16/17 14:33 67 9 95 16/17 14:33 67 9 16/17 14:31 117/57 16/17 14:28 66 10 92 16/17 14:28 66 10 16/17 14:26 118/56 16/17 14:23 66 15 93 16/17 14:23 66 15 16/17 14:21 118/65 16/17 14:18 66 6 95 16/17 14:18 66 6 16/17 14:16 121/58 16/17 14:13 67 11 94 16/17 14:13 67 11 16/17 14:11 127/64 16/17 14:08 70 22 16/17 14:08 69 22 95 16/17 14:06 120/63 16/17 14:03 65 8 16/17 14:03 64 8 92 16/17 14:01 115/56 16/17 13:58 64 9 94 16/17 13:58 64 9 16/17 13:56 116/53 04/14/17 13:53 64 9 04/14/17 13:53 64 9 95 04/14/17 13:51 121/58 04/14/17 13:48 65 12 94 04/14/17 13:48 64 12 04/14/17 13:46 115/57 04/14/17 13:43 64 8 94 04/14/17 13:43 64 8 04/14/17 13:42 76 26 95 04/14/17 13:42 63 26 04/14/17 13:41 116/53 04/14/17 13:37 64 15 04/14/17 13:37 64 15 95 04/14/17 13:36 117/59 04/14/17 13:32 67 13 04/14/17 13:32 67 13 94 04/14/17 13:31 119/55 04/14/17 13:27 67 17 04/14/17 13:27 67 17 97 04/14/17 13:26 130/67 04/14/17 13:22 65 14 04/14/17 13:22 65 14 97 04/14/17 13:21 107/57 04/14/17 13:21 36.6 67 19 130/67 97 Oxymask 3 04/14/17 13:17 68 19 04/14/17 13:17 66 19 97 04/14/17 13:16 116/56 04/14/17 13:12 68 16 97 04/14/17 13:12 68 16 04/14/17 13:11 120/59 04/14/17 13:07 71 8 04/14/17 13:07 66 8 97 04/14/17 13:06 68 13 04/14/17 13:06 68 13 120/60 97 04/14/17 13:01 71 13 04/14/17 13:01 71 13 134/62 98 04/14/17 12:56 69 12 116/60 96 04/14/17 12:56 69 12 04/14/17 12:51 67 11 115/61 95 04/14/17 12:51 68 11 04/14/17 12:50 68 14 115/61 96 Oxymask 10 Physical Exam General Appearance: WD/WN, no apparent distress Eyes: normal inspection, EOMI ENT: hearing grossly normal Neck: supple Respiratory/Chest: normal breath sounds, no respiratory distress Cardiovascular: regular rate, rhythm, no edema Abdomen: non tender, soft Extremities: non-tender, no pedal edema Neurologic/Psychiatric: alert, + pertinent finding (answers questions appropriately initially but does have tangential thoughts and needs redirected, follows commands) Skin: normal color, warm/dry Laboratory Results Last 24 Hours Test 04/14/17 22:12 04/15/17 05:53 Hemoglobin 10.8 g/dL 8.8 g/dL Hematocrit 32.3 % 24.7 % White Blood Count 14.32 K/uL Red Blood Count 2.62 M/uL Mean Corpuscular Volume 94.3 fL Mean Corpuscular Hemoglobin 33.6 pg Mean Corpuscular Hemoglobin Concent 35.6 g/dl Platelet Count 172 K/uL Mean Platelet Volume 10.2 fL Neutrophils (%) (Auto) 82.7 % Lymphocytes (%) (Auto) 8.4 % Monocytes (%) (Auto) 8.5 % Eosinophils (%) (Auto) 0.0 % Basophils (%) (Auto) 0.1 % Neutrophils # (Auto) 11.83 K/uL Lymphocytes # (Auto) 1.21 K/uL Monocytes # (Auto) 1.22 K/uL Eosinophils # (Auto) 0.00 K/uL Basophils # (Auto) 0.02 K/uL RDW Standard Deviation 46.9 fL RDW Coefficient of Variation 13.6 % Immature Granulocyte % (Auto) 0.3 % Immature Granulocyte # (Auto) 0.04 K/uL Red Blood Cell Morphology Unremarkable Sodium Level 137 mmol/L Potassium Level 4.1 mmol/L Chloride Level 105 mmol/L Carbon Dioxide Level 19 mmol/L Anion Gap 13.0 mmol/L Blood Urea Nitrogen 29 mg/dl Creatinine 1.33 mg/dl Est Creatinine Clear Calc Drug Dose 32.7 ml/min Estimated GFR () 45.5 Estimated GFR (Non- 39.3 BUN/Creatinine Ratio 21.7 Random Glucose 153 mg/dl Calcium Level 8.2 mg/dl Assessment and Plan 72-year-old female history of atrial fibrillation undergoing right total hip replacement Afib: continue diltiazem and Eliquis as permitted by ortho HTN: with her blood loss had a reduced Diovan dose by 50% holding and return to prior dosing Baseline memory impairment: continue Namenda and Aricept Depression: continue Zoloft HS Seroquel held on 04/14 resuming and 04/15 Resume home xanax dose as family states she is having issues without it Postop bleeding: repeat Hb did drop to 8.8, but pt is not sx with this and VSS Will continue to monitor and transfuse is <8 or if pt develops s/sx suggesting transfusion would be helpful I discussed this with family at bedside and they agree with this plan DVT proph and diet as per ortho
[2017-04-15] MEDS ORDERED: HALOPERIDOL LACTATE 5 MG/ML 1 ML VIAL IM STA (13:29)
[2017-04-15] MEDS: APIXABAN 2.5 MG TAB PO SCH ×3 (14:10→21:00)
[2017-04-15 15:01] VITALS: BP 104/62; PULSE 84; TEMP 36.7; O2SAT 96
[2017-04-15] MEDS ORDERED: NURSING VERBAL MED ORDER ONE (18:45)
[2017-04-15 18:51] VITALS: BP 110/67; PULSE 84; TEMP 37.2; O2SAT 98
[2017-04-15] MEDS: DILTIAZEM HCL 120 MG EXT REL CAP PO SCH ×2 (20:47→21:00)
[2017-04-15] MEDS: QUETIAPINE FUMARATE 25 MG TAB PO SCH ×2 (20:48→21:00)
[2017-04-15] MEDS: SIMVASTATIN 20 MG TAB PO SCH ×2 (20:49→21:00)
[2017-04-16] MEDS: LEVOTHYROXINE 150 MCG TAB PO SCH (06:00)
[2017-04-16] MEDS: ACETAMINOPHEN 500 MG TAB PO SCH ×2 (06:00→13:23)
--- NOTE | 2017-04-16 08:04 | Orthopedic Progress Note ---
Orthopedic Progress Note Date of Service Apr 16, 2017. Subjective Post OP Day: 2 Reports: feeling well, Denies: chest pain, SOB, nausea / vomiting, light headedness Additional Notes: PATIENT HAD CONFUSION OVERNIGHT. CURRENTLY ON 1:1. THIS IS HER BASELINE PER FAMILY. STATES THIS MORNING THAT "SHE IS AT SCHOOL." Objective calves soft nontender, N/V intact, hip located, capillary refill less than 2 sec., dressing C/D/I, A&O x3, toes mobile Date Time Temp Pulse Resp B/P (MAP) Pulse Ox O2 Delivery O2 Flow Rate FiO2 04/15/17 23:55 Room Air 04/15/17 18:51 37.2 84 16 110/67 (81) 98 Room Air 04/15/17 15:25 Room Air 04/15/17 15:01 36.7 84 18 104/62 (76) 96 Room Air 04/15/17 11:34 36.9 74 18 132/78 (96) 98 Room Air 04/15/17 08:41 98 Room Air 04/15/17 08:18 36.4 81 16 130/62 (84) 98 Room Air Laboratory Results 24 Hours: Test 04/16/17 07:15 Assessment & Plan Assessment: 72 yo female stable POD #2 s/p right CURTIS, acute blood loss anemia Plan: 1. Med management- limit narcotics, hasn't had any since surgery. Will plan to DC home on Tylenol only due to confusion. 2. DVT prophylaxis- resume Eliquis later today, SCDs 3. PT/OT 4. D/C planning- home w/ HH per family request. POSSIBLE DC HOME TODAY IF OK WITH MEDICINE.
[2017-04-16] MEDS: SERTRALINE HCL 100 MG TAB PO SCH (08:05)
[2017-04-16] MEDS: MEMANTINE 10 MG TAB PO SCH (08:05)
[2017-04-16] MEDS: DONEPEZIL HCL 5 MG TAB PO SCH (08:05)
[2017-04-16] MEDS: APIXABAN 2.5 MG TAB PO SCH (08:06)
[2017-04-16] MEDS ORDERED: ACET-24 PO (08:06)
[2017-04-16] MEDS: DOCUSATE SODIUM 100 MG CAP PO SCH (08:06)
[2017-04-16] MEDS: FERROUS GLUCONATE 324 MG TAB PO SCH ×2 (08:13→12:24)
[2017-04-16] MEDS: INDAPAMIDE 1.25 MG TAB PO SCH (08:13)
[2017-04-16] MEDS: MAGNESIUM OXIDE 400 MG TAB PO SCH (08:13)
[2017-04-16] MEDS: MULTIVITAMIN TAB PO SCH (08:14)
[2017-04-16] MEDS: PANTOprazole SOD 40 MG TAB PO SCH (08:14)
[2017-04-16] MEDS: VALSARTAN 80 MG TAB PO SCH (08:14)
[2017-04-16 08:20] VITALS: BP 131/54; PULSE 78; O2SAT 97
[2017-04-16 08:20] LABS: BUN/CREATININE RATIO 26.7 (10-20); CALCIUM 9.4 mg/dl (8.5-10.1); CREATININE 0.98 mg/dl (0.60-1.20); POTASSIUM 3.8 mmol/L (3.5-5.1)
[2017-04-16 08:30] LABS: HEMATOCRIT 26.8 % (37-47); MEAN CELL VOLUME 93.4 fL (80-100); MEAN CORPUSCULAR HEMOGLOBIN 31.7 pg (25-34); MEAN PLATELET VOLUME 10.1 fL (7.4-10.4); PLATELET COUNT 205 K/uL (130-400); RED BLOOD COUNT 2.87 M/uL (4.2-5.4); WHITE BLOOD COUNT 13.32 K/uL (4.8-10.8)
[2017-04-16] MEDS ORDERED: ALPRAZOLAM 0.5 MG TAB PO SCH (09:00)
[2017-04-16 12:57] VITALS: BP 131/54; PULSE 78; TEMP 37.2; O2SAT 97
--- NOTE | 2017-04-16 13:09 | Hospitalist Progress Note ---
Hospitalist Progress Note Date of Service Apr 16, 2017. Subjective Pt evaluation today including: conversation w/ patient, conversation w/ family Voiding: no voiding problems Pt doing well, pain is controlled, is lynn reg diet. She has dementia and is at her baseline as per family members present in room today. All Other Systems: Reviewed and Negative Objective Vital Signs Date Time Temp Pulse Resp B/P (MAP) Pulse Ox O2 Delivery O2 Flow Rate FiO2 04/16/17 08:20 78 19 131/54 (79) 97 Room Air 04/16/17 07:40 Room Air 04/15/17 23:55 Room Air 04/15/17 18:51 37.2 84 16 110/67 (81) 98 Room Air 04/15/17 15:25 Room Air 04/15/17 15:01 36.7 84 18 104/62 (76) 96 Room Air Physical Exam General Appearance: WD/WN, no apparent distress (sitting in chair eating lunch) Eyes: normal inspection, sclerae normal ENT: hearing grossly normal Neck: trachea midline Respiratory/Chest: lungs clear, normal breath sounds, no respiratory distress, no accessory muscle use Cardiovascular: regular rate, rhythm, no edema, no gallop, + systolic murmur (2 /6 at RUSB) Abdomen: normal bowel sounds, non tender, soft Extremities: no calf tenderness, + pertinent finding (trace pitting edema right leg, right hip with dressing in place) Neurologic/Psychiatric: alert, normal mood/affect Skin: normal color, warm/dry, no rash Laboratory Results Last 24 Hours Test 04/16/17 07:15 04/16/17 07:33 White Blood Count 13.32 K/uL Red Blood Count 2.87 M/uL Hemoglobin 9.1 g/dL Hematocrit 26.8 % Mean Corpuscular Volume 93.4 fL Mean Corpuscular Hemoglobin 31.7 pg Mean Corpuscular Hemoglobin Concent 34.0 g/dl RDW Standard Deviation 46.9 fL RDW Coefficient of Variation 13.8 % Platelet Count 205 K/uL Mean Platelet Volume 10.1 fL Nucleated RBC Absolute Count (auto) 0.08 K/uL Nucleated Red Blood Cells % 0.6 % Sodium Level 139 mmol/L Potassium Level 3.8 mmol/L Chloride Level 107 mmol/L Carbon Dioxide Level 23 mmol/L Anion Gap 9.0 mmol/L Blood Urea Nitrogen 26 mg/dl Creatinine 0.98 mg/dl Est Creatinine Clear Calc Drug Dose 44.4 ml/min Estimated GFR () 65.9 Estimated GFR (Non- 56.8 BUN/Creatinine Ratio 26.7 Random Glucose 113 mg/dl Calcium Level 9.4 mg/dl Assessment and Plan Pt is a 72-year-old female history of paroxysmal atrial fibrillation, HTN, pacemaker in situ, aortic stenosis, chronic diastolic CHF,dementia, depression, OA, here s/p right total hip replacement Right CURTIS- DVT proph Eliquis PT/OT, pain med with Tylenol f/u with Ortho as planned after dc PAfib/HTN/pacemaker in situ/mild aortic stenosis/chronic diastolic CHF: stable, no issues here -continue diltiazem and Eliquis -continue valsartan-confirmed home dose is definitely 160mg po bid, was getting 80mg bid here due to blood loss, but BP stable now Acute kidney injury-geriatric case manager increased to 1.33 on post-op day #1, likely from blood loss, hypoperfusion, now recovered, repeat geriatric case manager down to 0.98 Dementia: at baseline - continue Aricept Depression,Anxiety: continue Zoloft HS Seroquel held on 04/14 resumed 04/15 Resumed home xanax dose as family states she is having issues without it-was having delirium/withdrawal perhaps Anemia of acute blood loss: Hb did drop to 8.8, but pt is not sx with this and VSS--> hgb on day of dc up to 9.1, no transfusion received DVT Proph-Eliquis Dispo- to home with Home Health as per ortho today, ok for dc to home from a medical perspective f/u with PCP within 1-2 weeks
== END 2017-04-16 14:03 | disposition home health service (06) | DRG 470 ==
LOC: C.ACU 08:52 → C.3E 10:00 → ENRESERV 13:22
PROC: 0SR903A Replacement of Right Hip Joint with Ceramic Synthetic Substitute, Uncemented, Open Approach (ICD-10-PCS; principal; 2017-04-14 11:30)
DX: M16.11 Unilateral primary osteoarthritis, right hip (principal); D62 Acute posthemorrhagic anemia; I50.32 Chronic diastolic (congestive) heart failure; I48.91 Unspecified atrial fibrillation; I11.0 Hypertensive heart disease with heart failure; I35.0 Nonrheumatic aortic (valve) stenosis; E78.00 Pure hypercholesterolemia, unspecified; F32.9 Major depressive disorder, single episode, unspecified; Z79.01 Long term (current) use of anticoagulants; Z79.899 Other long term (current) drug therapy; Z96.642 Presence of left artificial hip joint; Z95.0 Presence of cardiac pacemaker